=== PATIENT | female | born 1995 | race Caucasian/White ===

== ENCOUNTER → 2017-07-09 | Outpatient (REF) | payer BC ==
[2017-07-09 16:16] LABS: BASO % 0.3 % (0.0-1.0); EOS # 0.4 10^3/uL (0.0-0.50); HEMOGLOBIN 12.7 g/dl (12.0-15.5); IMMATURE GRANULOCYTE % 0.2 % (0-3.0); LYMPH # 2.3 10^3/uL (1.5-6.5); LYMPH % 37.1 % (24.0-44.0); MEAN CORPUSCULAR HEMOGLOBIN 28.5 pg (27.0-33.0); MEAN CORPUSCULAR HGB CONC 33.4 g/dl (32.0-36.5); MEAN CORPUSCULAR VOLUME 85.2 fl (80.0-96.0); MONO # 0.3 10^3/uL (0.0-0.8); NEUTROPHILS # 3.2 10^3/uL (1.8-7.7); NEUTROPHILS % 51.4 % (36.0-66.0); PLATELET COUNT, AUTOMATED 220 10^3/uL (150-450); RED BLOOD COUNT 4.46 10^6/uL (4.00-5.40); RED CELL DISTRIBUTION WIDTH 12.9 % (11.5-14.5); WHITE BLOOD COUNT 6.2 10^3/uL (4.0-10.0)
[2017-07-09 16:36] LABS: ANION GAP 6 MEQ/L (8-16); BLOOD UREA NITROGEN 11 MG/DL (7-18); CALCIUM LEVEL 8.7 MG/DL (8.5-10.1); CARBON DIOXIDE LEVEL 27 MEQ/L (21-32); CHLORIDE LEVEL 110 MEQ/L (98-107); FREE T4 1.01 NG/DL (0.76-1.46); GLOMERULAR FILTRATION RATE > 60.0 (>60); GLUCOSE, FASTING 86 MG/DL (70-100); POTASSIUM SERUM 4.2 MEQ/L (3.5-5.1); SODIUM LEVEL 143 MEQ/L (136-145)
== END ==
LOC: M LABDRAW1 15:42
DX: E03.9 Hypothyroidism, unspecified (principal)
CPT/HCPCS: 84443

== ENCOUNTER → 2017-10-07 | Outpatient (REF) | payer BC ==
[2017-10-09 09:49] LABS: HEPATITIS B SURFACE ANTIBODY POSITIVE (POSITIVE)
[2017-10-09 09:52] LABS: RUBELLA IgG QUALITATIVE IMMUNE (IMMUNE)
[2017-10-11 00:06] LABS: HERPES ZOSTER, VARICELLA IgM <0.91 index (0.00-0.90); RUBEOLA IgG ANTIBODY <25.0 AU/mL (Immune >29.9)
[2017-10-11 00:06] LABS: HERPES ZOSTER, VARICELLA IgG 904 index (Immune >165)
== END ==
LOC: M LABDRAW1 15:21
DX: Z00.00 Encounter for general adult medical examination without abnormal findings (principal)
CPT/HCPCS: 86762

== ENCOUNTER → 2017-11-12 | Outpatient (REF) | payer BC ==
[2017-11-13 11:08] LABS: RUBELLA IgG QUALITATIVE >500.0 (IMMUNE)
[2017-11-14 08:52] LABS: RUBEOLA IgG ANTIBODY 33.4 AU/mL (Immune >29.9)
[2017-11-14 08:52] LABS: MUMPS VIRUS IgG ANTIBODY 50.8 AU/mL (Immune >10.9)
== END ==
LOC: M LAB REF 18:21
DX: J30.9 Allergic rhinitis, unspecified (principal)
CPT/HCPCS: 86762

== ENCOUNTER → 2018-04-01 | Outpatient (CLI) | payer BC ==
[2018-04-01 13:43] LABS: BASO % 0.4 % (0.0-1.0); EOS # 0.3 10^3/uL (0.0-0.50); EOS % 3.4 % (0.0-3.0); HEMATOCRIT 38.5 % (36.0-47.0); HEMOGLOBIN 13.2 g/dl (12.0-15.5); LYMPH # 1.8 10^3/uL (1.5-6.5); MEAN CORPUSCULAR HEMOGLOBIN 29.3 pg (27.0-33.0); MEAN CORPUSCULAR HGB CONC 34.3 g/dl (32.0-36.5); MEAN CORPUSCULAR VOLUME 85.6 fl (80.0-96.0); MONO # 0.6 10^3/uL (0.0-0.8); NEUTROPHILS # 7.1 10^3/uL (1.8-7.7); PLATELET COUNT, AUTOMATED 231 10^3/uL (150-450); WHITE BLOOD COUNT 9.9 10^3/uL (4.0-10.0)
[2018-04-02 14:12] LABS: HIV 1&2 SCREEN CENTAUR NEGATIVE (NEGATIVE); RUBELLA IgG QUALITATIVE IMMUNE (IMMUNE)
== END ==
LOC: M SMT 08:31
PROVIDERS: ATTEND Advanced Practice Midwife
DX: Z34.81 Encounter for supervision of other normal pregnancy, first trimester (principal); Z36.89 Encounter for other specified antenatal screening

== ENCOUNTER → 2018-04-19 | Outpatient (REF) | payer BC ==
[2018-04-19 22:23] LABS: APPEARANCE, URINE HAZY (CLEAR); BACTERIA, URINE AUTO 1+ (NEGATIVE); BILIRUBIN, URINE AUTO NEGATIVE (NEGATIVE); BLOOD, URINE BLOOD NEGATIVE (NEGATIVE); CALCIUM OXALATE CRYSTALS LARGE; COLOR, URINE YELLOW (YELLOW); GLUCOSE, URINE (UA) AUTO NEGATIVE (NEGATIVE); KETONE, URINE AUTO NEGATIVE (NEGATIVE); LEUKOCYTE ESTERASE, URINE AUTO 2+ (NEGATIVE); MUCUS, URINE SMALL (NEGATIVE); NITRITE, URINE AUTO NEGATIVE (NEGATIVE); PROTEIN, URINE AUTO NEGATIVE (NEGATIVE); RBC, URINE AUTO 4 /HPF (0-3); SPECIFIC GRAVITY URINE AUTO 1.027 (1.002-1.035); SQUAMOUS EPITHELIAL CELL UR AU 26 /HPF (0-6); WBC, URINE AUTO 8 /HPF (0-3)
== END ==
LOC: M LAB REF 11:20
PROVIDERS: ATTEND Physician Assistant Medical
DX: N39.0 Urinary tract infection, site not specified (principal)

== ENCOUNTER → 2018-04-29 | Outpatient (REF) | payer BC ==
[2018-04-29 16:02] LABS: CHLAMYDIA DNA AMPLIFICATION NEGATIVE (NEGATIVE); GC DNA AMPLIFICATION NEGATIVE (NEGATIVE)
== END ==
LOC: M LAB REF 13:23
PROVIDERS: ATTEND Advanced Practice Midwife
DX: Z34.82 Encounter for supervision of other normal pregnancy, second trimester (principal)

== ENCOUNTER → 2018-05-27 | Outpatient (REF) | payer BC | LOC: M LAB REF 17:02 | PROVIDERS: ATTEND Advanced Practice Midwife | DX: Z34.82 Encounter for supervision of other normal pregnancy, second trimester (principal) ==

== ENCOUNTER → 2018-06-07 | Outpatient (CLI) | payer BC ==
--- NOTE | 2018-06-07 12:54 | REP ---
Obstetric ultrasound for anatomy: There is a single intrauterine gestation in a vertex presentation. heart rate is 162 beats per minute. There is motion. The placenta is anterior. There is no placenta previa or abruptio. The placenta is grade zero maturity. The amniotic fluid volume subjectively is normal. The cervix measures 3.8 cm length. By today's ultrasound the gestational age is 19 weeks 3 days/GABBIE 10/29/2018. By LMP the gestational age is 19 weeks 2 days/GABBIE 10/30/2018. weight is 289 grams/0 pounds, 10 ounces. This is the 49th percentile for 19 weeks 2 days. The following anatomic structures are identified and are unremarkable: Intracranial lateral ventricles, choroid plexus, cisterna magna, cerebellum, lungs, diaphragm, left-sided stomach, cord insertion, three-vessel cord, kidneys, bladder, spine and lower extremities. Suboptimally demonstrated because of position are the facial features, four-chamber view of the heart, cardiac right and left ventricular outflow tracts and upper extremities. A followup study dedicated to these structures might be considered. Otherwise, there are no anomalies. Electronically Signed by Anthony Cali MD 06/07/2018 12:46 P
== END ==
LOC: M RAD 11:03
PROVIDERS: ATTEND Advanced Practice Midwife
DX: Z34.82 Encounter for supervision of other normal pregnancy, second trimester (principal)

== ENCOUNTER → 2018-07-01 | Outpatient (CLI) | payer BC ==
--- NOTE | 2018-07-02 05:20 | REP ---
Clinical: Anatomical evaluation. Comparison: 06/07/2018 . Findings: Examination demonstrates a single live intrauterine in cephalic presentation. motion is identified by technologist. Placenta is noted anterior and grade grade zero without evidence for placenta previa or abruption. Amniotic fluid volume is normal. Cervix measures 3.9 cm in length and appears closed. No evidence for nuchal cord. Gestational age by LMP 22 weeks 5 days with GABBIE 10/30/2018 . Gestational age by current measurements 22 weeks 1 day with GABBIE 11/03/2018 . Estimated weight 475 grams ( 27th percentile). Anatomical assessment demonstrates normal structures including cranium, choroid plexus, cavum, cerebellum/posterior fossa, facial features, lungs, four-chamber heart/ventricular outflow tracts, diaphragm,cord insertion/three-vessel cord, kidneys, spine, and extremities. Impression: Single live intrauterine in cephalic presentation demonstrating appropriate interval growth. In conjunction with prior examination anatomical assessment is complete and normal. No gross abnormalities are identified. Electronically Signed by Rashi Posadas MD 07/02/2018 05:12 A
== END ==
LOC: M RAD 15:35
PROVIDERS: ATTEND Specialist
DX: Z34.82 Encounter for supervision of other normal pregnancy, second trimester (principal); Z3A.22 22 weeks gestation of pregnancy

== ENCOUNTER → 2018-08-11 | Outpatient (CLI) | payer BC ==
[2018-08-11 10:06] LABS: BASO % 0.2 % (0.0-1.0); EOS # 0.3 10^3/uL (0.0-0.50); EOS % 2.6 % (0.0-3.0); HEMATOCRIT 32.2 % (36.0-47.0); HEMOGLOBIN 10.7 g/dl (12.0-15.5); LYMPH # 1.7 10^3/uL (1.5-6.5); LYMPH % 16.7 % (24.0-44.0); MEAN CORPUSCULAR HEMOGLOBIN 29.2 pg (27.0-33.0); MEAN CORPUSCULAR HGB CONC 33.2 g/dl (32.0-36.5); MEAN CORPUSCULAR VOLUME 87.7 fl (80.0-96.0); MONO # 0.6 10^3/uL (0.0-0.8); MONO % 5.6 % (0.0-5.0); NEUTROPHILS # 7.5 10^3/uL (1.8-7.7); NEUTROPHILS % 74.3 % (36.0-66.0); PLATELET COUNT, AUTOMATED 185 10^3/uL (150-450); RED BLOOD COUNT 3.67 10^6/uL (4.00-5.40); WHITE BLOOD COUNT 10.1 10^3/uL (4.0-10.0)
== END ==
LOC: M SMT 08:08
PROVIDERS: ATTEND Specialist
DX: Z36.89 Encounter for other specified antenatal screening (principal); Z3A.00 Weeks of gestation of pregnancy not specified

== ENCOUNTER → 2018-10-07 | Outpatient (REF) | payer BC ==
[~2018-10-07] MED LIST: ACET-683 PO; IBUP80TA PO
== END ==
LOC: M LAB REF 13:04
PROVIDERS: ATTEND Advanced Practice Midwife
DX: Z34.83 Encounter for supervision of other normal pregnancy, third trimester (principal)

== ENCOUNTER → 2018-10-08 | Outpatient (CLI) | payer BC | LOC: M SMT 13:38 | PROVIDERS: ATTEND Advanced Practice Midwife | DX: Z36.89 Encounter for other specified antenatal screening (principal) ==

== ENCOUNTER 2018-10-30 06:26 | Inpatient (IN) | payer BC ==
[~2018-10-30] VITALS: Ht 165.1 cm; Wt 95.6 kg
[2018-10-30] VITALS (21 sets, daily range): BP systolic 100–146; BP diastolic 55–82
[2018-10-30] MEDS ORDERED: miSOPROStol 50 MCG 1/2 TAB (S0191) PO SCH (08:00)
[2018-10-30 08:01] LABS: HEMATOCRIT 30.9 % (36.0-47.0); HEMOGLOBIN 9.8 g/dl (12.0-15.5); MEAN CORPUSCULAR HEMOGLOBIN 24.9 pg (27.0-33.0); MEAN CORPUSCULAR HGB CONC 31.7 g/dl (32.0-36.5); MEAN CORPUSCULAR VOLUME 78.6 fl (80.0-96.0); PLATELET COUNT, AUTOMATED 220 10^3/uL (150-450); RED BLOOD COUNT 3.93 10^6/uL (4.00-5.40); WHITE BLOOD COUNT 9.4 10^3/uL (4.0-10.0)
--- NOTE | 2018-10-30 08:33 | HPE ---
DATE OF ADMISSION: 10/30/2018 REASON FOR ADMISSION: Induction of labor. HISTORY OF PRESENT ILLNESS: Mrs. Ellis is a 23-year-old 2, para 1 who presents at 40 weeks 0 days by last menstrual period and confirmed by a first trimester ultrasound for induction of labor. course has been unremarkable. She initiated care in the first trimester and has been appropriate throughout. PAST MEDICAL HISTORY: None. PAST SURGICAL HISTORY: Tonsillectomy. OBSTETRICAL HISTORY: She is 2, para 1. She has had one term vaginal delivery proven to 6 pounds 11 ounces. MEDICATIONS: - vitamins ALLERGIES: SULFA SOCIAL HISTORY: Denies any alcohol, tobacco or drug use during . PHYSICAL EXAMINATION: Vital signs: Stable. She is afebrile. GENERAL APPEARANCE: Well appearing, no acute distress. She has a category 1 heart tracing. heart rate 140s with moderate variability and spontaneous accelerations. No contractions on tocometer. LUNGS: Clear to auscultation bilaterally. CARDIOVASCULAR: Heart regular rate and rhythm. ABDOMEN: Gravid, nontender. Estimated weight 3000 grams. Cervical exam: She is 2 to 3 cm dilated, 75% effaced -2 station. LABORATORIES: Blood type is A+, antibody screen is negative. Rubella is immune. RPR is nonreactive. Hepatitis surface antigen negative. HIV is negative. Hepatitis C is nonreactive. Chlamydia and gonorrhea screens negative. She had a normal 1 hour Glucola. She is Group B streptococcus (GBS) negative. ASSESSMENT: 1. Mrs. Ellis is a 23-year-old 2, para 1 at 40 weeks and 0 days estimated gestational age. 2. Reassuring status. PLAN: 1. Admit to Labor delivery. CBC, RPR, type and screen. 2. The patient has been thoroughly counseled in regard to induction of labor. I discussed medication, as well as procedures performed in labor and delivery. She has also been verbally consented for emergency surgery, blood products and anesthesia and desires to proceed with admission. 3. We will initiate her induction of labor with 50 mcg of misoprostol.
[2018-10-30] MEDS ORDERED: OXYTOCIN DRIP 30 UNITS in APPROPRIATE DILUENT 1 EA IV SCH ×2 (12:15→21:47)
[2018-10-30] MEDS ORDERED: OXYTOCIN 30 UNITS IN 0.9% NaCl 500ML IV BAG (J2590) As Ordered ONE (12:24)
[2018-10-30] MEDS: LR 1,000 ML IV SCH ×2 (15:23→20:14)
[2018-10-30] MEDS ORDERED: FENTANYL 2MCG/ML ROPIVACAINE 0.2% IN 0.9% NACL 100ML IVBAG As Ordered ONE (19:12)
[2018-10-30] MEDS ORDERED: FENTANYL/ROPIVACAINE/NACL BAG 100 ML EPIDURAL SCH (20:15)
[2018-10-30] MEDS ORDERED: EPIDURAL/PCA KEYS XX PRN (20:15)
[2018-10-30] MEDS ORDERED: ePHEDrine SULFATE 25 MG/5 ML(5MG/ML) SYRINGE IV PRN (20:15)
[2018-10-30] MEDS ORDERED: NALOXONE INJ 0.4 MG/1 ML VIAL (J2310) IV PRN (20:15)
[2018-10-30] MEDS ORDERED: LACTATED RINGER'S 1000 ML IV PRN (20:15)
[2018-10-30] MEDS ORDERED: REFRIGERATOR IV KEYS XX PRN (20:15)
[2018-10-30] MEDS ORDERED: ONDANSETRON 4MG/2ML VIAL (J2405) IV PRN (20:15)
[2018-10-30] MEDS ORDERED: diphenhydrAMINE INJ 50MG/ML VIAL (J1200) IV PRN (20:15)
[2018-10-30] MEDS ORDERED: EPIDURAL COMMENT XX SCH (20:15)
[2018-10-30 20:54] LABS: CORD GAS ABE A -9.2; CORD GAS HCO3 A 15.8 MEQ/L; CORD GAS O2 SAT A 66.5 %; CORD GAS PCO2 A 32.5 mmHg; CORD GAS PH A 7.304 UNITS; CORD GAS PO2 A 31.1 mmHg; CORD GAS SBC A 16.6 MEQ/L; CORD GAS TCO2 A 16.8 MEQ/L
[2018-10-30 20:55] LABS: CORD GAS ABE V -7.8; CORD GAS HCO3 V 17.3 MEQ/L; CORD GAS PCO2 V 34.9 mmHg; CORD GAS PH V 7.313 UNITS; CORD GAS PO2 V 29.7 mmHg; CORD GAS SBC V 17.5 MEQ/L; CORD GAS TCO2 V 18.4 MEQ/L
[2018-10-30] MEDS ORDERED: MEASLES,MUMPS,RUBELLA VACCINE INJ (MMR-II) (90707) SC SCH (22:00)
[2018-10-30] MEDS ORDERED: MOM 30ML SUSPENSION UDC PO PRN (22:00)
[2018-10-30] MEDS ORDERED: METHYLERGONOVINE MALEATE 0.2 MG TAB PO PRN (22:00)
[2018-10-30] MEDS ORDERED: ACETAMINOPHEN 500 MG TAB PO PRN (22:00)
[2018-10-30] MEDS ORDERED: DOCUSATE SODIUM 100 MG CAP PO PRN (22:00)
[2018-10-30] MEDS ORDERED: RHOGAM 300 MCG (1500 IU) INJ (J2790) IM SCH (22:00)
[2018-10-30] MEDS ORDERED: IBUPROFEN 600 MG TAB PO PRN (22:00)
[2018-10-30] MEDS ORDERED: ANUSOL HC CREAM 30GM TOP PRN (22:00)
[2018-10-30] MEDS ORDERED: DIBUCAINE 1% OINTMENT 30GM TOP PRN (22:00)
[2018-10-30] MEDS ORDERED: ACETAMINOPHEN TAB 650MG DOSE (2X325MG) PO PRN (22:00)
[2018-10-31] MEDS: IBUPROFEN 800 MG TAB PO PRN ×2 (00:26→14:57)
[2018-10-31 06:12] VITALS: BP 100/59
--- NOTE | 2018-10-31 08:11 | DN ---
DATE OF DELIVERY: 10/30/2018 TIME OF : 2038 SCORES: 9 and 9. GENDER: Male. WEIGHT: 3510 grams, 7 pounds 12 ounces ANESTHESIA: Epidural. LACERATION: First degree midline laceration. ESTIMATED BLOOD LOSS: 300 mL. COUNTS: Five laparotomy sponges accounted for prior to and after delivery. Three sharps removed from the delivery field. CORD GASES: 7.30, 7.31, base excesses of -9.2 and -7.8 respectively. MODE OF DELIVERY: Outlet vacuum assisted vaginal delivery secondary to prolonged bradycardia. DELIVERY NOTE: On the October at 2038 Mrs. Ellis, a 23-year-old, 2, now para 2 had a outlet vacuum assisted vaginal delivery of a live born male infant. scores 9 and 9, weight was 3510 grams, 7 pounds 12 ounces and this was secondary to prolonged bradycardia. Vacuum was applied and one set of maternal pushing effort with no pop off of vacuum. Head was delivered occipitoanterior (OA). Vacuum suction was then released and this was followed by delivery of anterior shoulder and posterior shoulder and corpus. Infant was handed to the mom with a good cry. Cord was clamped times two and was cut by the father of the baby under by direction. Cord gas were obtained. Placenta was then drained and delivered grossly intact. A premix bag of 500 mL of normal saline with 30 units of Pitocin was then bolused along with uterine massage until the uterus was firm. On inspection there was a first degree midline laceration which was repaired with 3-0 Vicryl Rapide. Re-inspection of cervix, vagina, and perineum was grossly intact and hemostatic. Mom and baby recovering in stable condition. The couple decided to name their son, Orlin Hebert.
[2018-10-31] MEDS: PRENATAL VITAMINS CHEWABLE TABLET PO SCH (08:14)
[2018-10-31 18:00] VITALS: BP 106/59
[2018-11-01 05:46] VITALS: BP 110/63
[2018-11-01] MEDS: PRENATAL VITAMINS CHEWABLE TABLET PO SCH (08:26)
[2018-11-01] MEDS ORDERED: IBUP80TA PO (10:20)
[2018-11-01] MEDS ORDERED: ACET-683 PO (10:20)
== END 2018-11-01 11:30 | disposition home or self-care (01) | DRG 560 ==
LOC: M LDI 06:26 → M OBS 22:39 → M PED 10-31 20:00
PROVIDERS: ADMIT Advanced Practice Midwife; ATTEND Obstetrics & Gynecology
PROC: 10D07Z6 Extraction of Products of Conception, Vacuum, Via Natural or Artificial Opening (ICD-10-PCS; principal; 2018-10-30)
PROC: 3E0P7GC Introduction of Other Therapeutic Substance into Female Reproductive, Via Natural or Artificial Opening (ICD-10-PCS; 2018-10-30)
PROC: 10907ZC Drainage of Amniotic Fluid, Therapeutic from Products of Conception, Via Natural or Artificial Opening (ICD-10-PCS; 2018-10-30)
PROC: 0HQ9XZZ Repair Perineum Skin, External Approach (ICD-10-PCS; 2018-10-30)
DX: O76 Abnormality in fetal heart rate and rhythm complicating labor and delivery (principal); Z37.0 Single live birth; Z3A.40 40 weeks gestation of pregnancy; O70.0 First degree perineal laceration during delivery

== ENCOUNTER → 2019-03-11 | Outpatient (REF) | payer BC | LOC: M SFHCWAGY 11:31 | PROVIDERS: ATTEND Advanced Practice Midwife | DX: Z12.4 Encounter for screening for malignant neoplasm of cervix (principal) | CPT/HCPCS: 87624; G0123 ==

== ENCOUNTER → 2020-02-03 | Outpatient (REF) | payer BC ==
[2020-02-03 13:31] LABS: FREE T4 1.14 NG/DL (0.76-1.46); THYROID STIMULATING HORMONE 0.958 uIU/ML (0.358-3.740)
== END ==
LOC: M PLALAB 11:33
PROVIDERS: ATTEND Nurse Practitioner Women's Health
DX: N92.6 Irregular menstruation, unspecified (principal)

== ENCOUNTER → 2020-02-06 | Outpatient (CLI) | payer BC ==
--- NOTE | 2020-02-06 16:42 | REP ---
INDICATION: ABNORMAL UTERINE BLEEDING, NEW ONSET OF FREQUENT EXCESSIVE M. COMPARISON: None. TECHNIQUE: Transabdominal and transvaginal scanning performed. FINDINGS: Uterine dimensions are 7.3 x 4.4 x 5.4 cm. Endometrial echo is 7 mm in AP dimension and centrally placed. The bladder measures 4.6 x 8.0 x 2.3 cm. The uterus is retroverted. The right ovary has dimensions of 3.9 x 2.6 x 2.5 cm. It's Doppler flow is normal with a resistive index of 0.53. The left ovary dimensions are 2.8 x 1.8 x 2.3 cm. It's Doppler flow was normal with resistive index of 0.68. There is no adnexal mass identified. Multiple follicles are seen in each ovary with no evidence of adnexal mass. There is very mild free fluid in the cul-de-sac. IMPRESSION: Very mild free fluid. No mass. Multiple follicles seen in each ovary. <Electronically signed by Anthony Hebert > 02/06/20 [id number]
== END ==
LOC: M WHC 15:22
PROVIDERS: ATTEND Nurse Practitioner Women's Health
DX: N93.9 Abnormal uterine and vaginal bleeding, unspecified (principal)

== ENCOUNTER → 2020-11-26 | Outpatient (CLI) | payer OTHER ==
[2020-11-26 15:30] LABS: BASO % 0.3 % (0.0-1.0); EOS # 0.4 10^3/uL (0.0-0.5); EOS % 3.4 % (0.0-3.0); HEMATOCRIT 38.7 % (36.0-47.0); HEMOGLOBIN 13.3 g/dl (12.0-15.5); LYMPH # 2.2 10^3/uL (1.5-5.0); LYMPH % 18.4 % (24.0-44.0); MEAN CORPUSCULAR HEMOGLOBIN 29.6 pg (27.0-33.0); MEAN CORPUSCULAR HGB CONC 34.4 g/dl (32.0-36.5); MONO # 0.7 10^3/uL (0.0-0.8); MONO % 5.4 % (2.0-8.0); NEUTROPHILS # 8.6 10^3/uL (1.5-8.5); PLATELET COUNT, AUTOMATED 210 10^3/uL (150-450)
[2020-11-26 16:21] LABS: HEPATITIS C VIRUS ABY INDEX 0.1 INDEX (<0.8); HIV 1&2 SCREEN CENTAUR NEGATIVE (NEGATIVE)
[2020-11-26 17:05] LABS: GC DNA AMPLIFICATION NEGATIVE (NEGATIVE)
== END ==
LOC: M PLALAB 11:38
PROVIDERS: ATTEND Specialist
DX: Z36.89 Encounter for other specified antenatal screening (principal)

== ENCOUNTER → 2021-01-08 | Outpatient (CLI) | payer OTHER ==
--- NOTE | 2021-01-08 16:33 | REP ---
INDICATION: ANATOMY COMPARISON: None. TECHNIQUE: Transabdominal obstetrical ultrasound with color Doppler evaluation. FINDINGS: Examination demonstrates a single live intrauterine in variable presentation. motion is identified by technologist. Placenta is noted anterior and grade 0 without evidence for placenta previa or abruption. Amniotic fluid volume is normal. Cervix measures 3.3 cm in length and appears closed.. Selected gestational age: 20 weeks 3 days with GABBIE 05/25/2021. Gestational age by current measurements 20 weeks 5 days with GABBIE 05/23/2021. FHR equals 146 beats per minute. Estimated weight 395 grams (78thpercentile). Anatomical assessment demonstrates normal structures including cranium, choroid plexus, cavum, cerebellum/posterior fossa, facial features, lungs, four-chamber heart/ventricular outflow tracts, diaphragm, stomach, cord insertion/three-vessel cord, kidneys/bladder, spine, and extremities. IMPRESSION: Single live intrauterine in variable presentation demonstrating appropriate estimated weight. Anatomical assessment is complete and normal. <Electronically signed by Rashi Posadas > 01/08/21 [id number]
== END ==
LOC: M WHC 15:26
PROVIDERS: ATTEND Specialist
DX: Z36.9 Encounter for antenatal screening, unspecified (principal); Z3A.20 20 weeks gestation of pregnancy

== ENCOUNTER → 2021-02-19 | Outpatient (CLI) | payer OTHER ==
[2021-02-19 13:34] LABS: HEMATOCRIT 34.8 % (36.0-47.0); HEMOGLOBIN 11.7 g/dl (12.0-15.5); MEAN CORPUSCULAR HEMOGLOBIN 29.4 pg (27.0-33.0); MEAN CORPUSCULAR HGB CONC 33.6 g/dl (32.0-36.5); MEAN CORPUSCULAR VOLUME 87.4 fl (80.0-96.0); PLATELET COUNT, AUTOMATED 189 10^3/uL (150-450); RED BLOOD COUNT 3.98 10^6/uL (4.00-5.40); WHITE BLOOD COUNT 9.2 10^3/uL (4.0-10.0)
== END ==
LOC: M PLALAB 09:22
PROVIDERS: ATTEND Advanced Practice Midwife
DX: Z36.9 Encounter for antenatal screening, unspecified (principal); Z3A.22 22 weeks gestation of pregnancy
CPT/HCPCS: 36415; 82950; 85027; 86850; 86900; 86901; G0463

== ENCOUNTER → 2021-04-30 | Outpatient (REF) | payer OTHER | LOC: M SFHCWAGY 16:41 | PROVIDERS: ATTEND Obstetrics & Gynecology | DX: Z36.89 Encounter for other specified antenatal screening (principal); Z3A.36 36 weeks gestation of pregnancy ==

== ENCOUNTER → 2021-09-26 | Outpatient (REF) | payer OTHER ==
[~2021-09-26] MED LIST changes: +COLA100C5 PO; +IBUP-1022 PO; +OMEP10CASR PO
== END ==
LOC: M SFHCWAGY 13:05
PROVIDERS: ATTEND Specialist
DX: Z12.4 Encounter for screening for malignant neoplasm of cervix (principal)

== ENCOUNTER → 2022-12-02 | Outpatient (CLI) | payer OTHER | LOC: M PLALAB 11:50 | PROVIDERS: ATTEND Specialist | DX: O02.1 Missed abortion (principal) | CPT/HCPCS: 36415; G0463 ==

== ENCOUNTER → 2024-03-17 | Outpatient (CLI) | payer OTHER ==
[2024-03-17 18:23] LABS: HEMATOCRIT 37.2 % (36.0-47.0); HEMOGLOBIN 12.6 g/dl (12.0-15.5); MEAN CORPUSCULAR HEMOGLOBIN 28.5 pg (27.0-33.0); MEAN CORPUSCULAR HGB CONC 33.9 g/dl (32.0-36.5); MEAN CORPUSCULAR VOLUME 84.2 fl (80.0-96.0); PLATELET COUNT, AUTOMATED 207 10^3/uL (150-450); RED BLOOD COUNT 4.42 10^6/uL (4.00-5.40); WHITE BLOOD COUNT 11.6 10^3/uL (4.0-10.0)
[2024-03-17 19:17] LABS: HIV 1&2 SCREEN NEGATIVE (NEGATIVE)
[2024-03-17 19:26] LABS: HEPATITIS C VIRUS ABY INDEX 0.03 INDEX (<0.8)
[2024-03-17 20:01] LABS: GC DNA AMPLIFICATION NEGATIVE (NEGATIVE)
== END ==
LOC: M PLALAB 15:30
PROVIDERS: ATTEND Specialist
DX: Z34.81 Encounter for supervision of other normal pregnancy, first trimester (principal)

== ENCOUNTER → 2024-05-23 | Outpatient (CLI) | payer OTHER | LOC: M WHC 12:49 | PROVIDERS: ATTEND Specialist | DX: Z34.82 Encounter for supervision of other normal pregnancy, second trimester (principal) ==

== ENCOUNTER → 2024-06-29 | Outpatient (CLI) | payer OTHER, MEDICAID | LOC: M RAD 14:46 | PROVIDERS: ATTEND Nurse Practitioner Women's Health | DX: O32.1XX0 Maternal care for breech presentation, not applicable or unspecified (principal); Z3A.25 25 weeks gestation of pregnancy ==